=== PATIENT | female | born 1995 | race Caucasian/White ===

== ENCOUNTER 2017-04-04 10:10 | Emergency (ER) | payer MEDICAID ==
[2017-04-04 10:51] LABS: URINE APPEARANCE CLOUDY; URINE BILIRUBIN NEGATIVE (NEGATIVE); URINE BLOOD TRACE-I (NEGATIVE); URINE COLOR ORANGE; URINE GLUCOSE (UA) NEGATIVE (NEGATIVE); URINE KETONE NEGATIVE (NEGATIVE); URINE LEUKOCYTE ESTERASE SMALL (NEGATIVE); URINE NITRITE POSITIVE (NEGATIVE); URINE PROTEIN NEGATIVE (NEGATIVE)
[2017-04-04 11:13] LABS: URINE BACTERIA 3+; URINE EPITHELIAL CELLS 0 - 2 (FEW); URINE RBC 0 - 2 (NONE SEEN); URINE WBC 21 - 35 (0-2/hpf)
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
[2017-04-04 11:28] LABS: HCG,QUALITATIVE URINE NEGATIVE (NEGATIVE)
== END 2017-04-04 11:39 | disposition home or self-care (01) ==
LOC: ER 10:10
DX: N30.00 Acute cystitis without hematuria (principal); M54.5 Low back pain
CPT/HCPCS: 81001; 81025; 99282

== ENCOUNTER 2018-11-03 11:47 | Emergency (ER) | payer MEDICAID ==
--- NOTE | 2018-11-03 12:02 | Emergency Department Record ---
History of Present Illness - General Chief complaint: Extremity Problem Stated complaint: RIGHT ARM PAIN Time Seen by Provider: 11/03/18 11:56 Source: Patient Mode of Arrival: Ambulatory Limitations: No limitations - History of Present Illness Initial comments: 22 yo female presents with right wrist/forearm pain. She has some finger tingling and numbness at times. Mostly the index and middle finger involved. No weakness, no swelling, no color changes. She works at a bakery and performs repetitive movements. No history of similar in the past. No control hormone. No history of DVT. MD Complaint: Extremity pain, Joint pain Onset/Timin -: Month(s) Location: Right, Arm, Other History of Same: No Radiation: Distal Severity scale (1-10): 7 Quality: Aching Consistency: Constant Improves with: Nothing Worsens with: Nothing Associated Symptoms: Denies other symptoms - Related Data Home Medications Medication Instructions Recorded Confirmed Last Taken No Home Med [NO HOME MEDS] 11/03/18 11/03/18 Unknown Allergies Allergy/AdvReac Type Severity Reaction Status Date / Time No Known Drug Allergies Allergy Verified 04/04/17 10:32 Travel Screening - Travel/Exposure Within Last 30 Days Have you traveled within the last 30 days?: No Review of Systems Constitutional: Denies: Chills, Fever, Weakness Eyes: Denies: Eye discharge, Vision change ENT: Denies: Congestion, Throat pain Respiratory: Denies: Cough Cardiovascular: Denies: Chest pain Endocrine: Denies: Fatigue Gastrointestinal: Denies: Abdominal pain, Diarrhea, Nausea, Vomiting Genitourinary: Denies: Dysuria, Urgency Musculoskeletal: Reports: Arthralgia, Myalgia Skin: Denies: Bruising, Change in color, Rash Neurological: Reports: Numbness, Tingling Psychiatric: Denies: Anxiety Hematological/Lymphatic: Denies: Easy bleeding, Easy bruising Past Medical History - SOCIAL HISTORY Smoking Status: Current every day smoker - RESPIRATORY Hx Respiratory Disorders: No - CARDIOVASCULAR Hx Cardio Disorders: No - NEURO Hx Neuro Disorders: No - GI Hx GI Disorders: No - Hx Genitourinary Disorders: Yes Hx UTI: Yes (frequently) - ENDOCRINE Hx Endocrine Disorders: No - MUSCULOSKELETAL Hx Musculoskeletal Disorders: No - PSYCH Hx Psych Problems: Yes Hx Depression: Yes - HEMATOLOGY/ONCOLOGY Hx Hematology/Oncology Disorders: No Family Medical History Any Significant Family History?: No Family Hx Comment (NOT TO BE USED IN PLACE OF ITEMS BELOW): denies Physical Exam - General General Appearance: Alert, Oriented x3, Cooperative, No acute distress Limitations: No limitations - Head Head exam: Atraumatic, Normal inspection - Eye Eye exam: Normal appearance. negative: Conjunctival injection, Scleral icterus - ENT ENT exam: Normal exam, Mucous membranes moist Ear exam: Normal external inspection Nasal Exam: Normal inspection Mouth exam: Normal external inspection - Neck Neck exam: Normal inspection - Cardiovascular Cardiovascular Exam: Regular rate, Normal rhythm, Normal heart sounds Peripheral Pulses: 2+: Radial (R) - Neurological Neurological exam: Alert, Oriented X3. negative: Altered, Motor sensory deficit, Reflexes normal - Psychiatric Psychiatric exam: Normal affect, Normal mood - Skin Skin exam: Normal color. negative: Abrasion, Cyanosis, Erythema Course Vital Signs 11/03/18 11:50 Temperature 98.1 F Pulse Rate 93 H Respiratory 18 Rate Blood Pressure 109/73 Pulse Ox 99 - Reevaluation(s) Reevaluation #1: 11/03/18 12:00 Normal inspection, normal, full strength, normal pulses, no swelling. The clinically picture is consistent with carpal tunnel syndrome 11/03/18 12:25 The XR was reviewed. NO acute process. DC with carpal tunnel instructions and follow up recommendations Disposition Disposition: Discharge Clinical Impression: Carpal tunnel syndrome Disposition: Home, Self-Care Condition: (1) Good Instructions: Paresthesia (ED) Additional Instructions: Call your doctor for the next available follow up appointment Review this ER visit and the tests performed with your family doctor Return to the ER for a recheck if worse, any new concerns or questions Use the splint for support and comfort If the symptoms continue you may need further tests to confirm whether this is carpal tunnel Forms: Patient Portal Access Time of Disposition: 12:25 Quality - Quality Measures Quality Measures: N/A - Blood Pressure Screening Does Patient Have Any of the Following: No Blood Pressure Classification: Normal BP Reading Systolic Measurement: 109 Diastolic Measurement: 73 Screening for High Blood Pressure: < Normal BP, F/U Not Required > [G8783]
--- NOTE | 2018-11-05 07:48 | RADIOLOGY REPORT ---
EXAM: RIGHT FOREARM, TWO VIEWS HISTORY: PAIN RADIATING FROM LATERAL ASPECT OF RIGHT ELBOW DISTALLY INTO HAND WITH ASSOCIATED RIGHT HAND NUMBNESS FOR ONE MONTH. NO KNOWN INJURY. TECHNIQUE: AP and lateral views of the right forearm were obtained. Comparison: None. Encounter: Initial. FINDINGS: There is normal bone mineralization. No fracture, dislocation, or destructive bone lesion is seen. The articular relations are maintained. No soft tissue abnormality identified. IMPRESSION: NORMAL RIGHT FOREARM. JOB NUMBER: [id number] MTDD
== END 2018-11-03 12:40 | disposition home or self-care (01) ==
LOC: ER 11:47
DX: G56.01 Carpal tunnel syndrome, right upper limb (principal); F17.210 Nicotine dependence, cigarettes, uncomplicated
CPT/HCPCS: 99283